=== PATIENT | female | born 1935 | race African-American/Black ===

== ENCOUNTER 2016-05-24 14:12 | Emergency (ER) | payer OTHER, MEDICAID ==
[~2016-05-24] VITALS: Ht 175.3 cm; Wt 80.7 kg
[~2016-05-24 14:12] MED LIST: AMBIEN5 MG ORAL; COZAAR50 MG ORAL; HYDROCHLOROTHIA25 MG ORAL; METFORMIN HCL500 M1 ORAL; NORVASC5 MG ORAL
[2016-05-24 14:28] VITALS: BP 176/68
[2016-05-24] MEDS ORDERED: Tylenol #3 tab (300mg/30mg) ORAL ONE (14:45)
[2016-05-24 15:30] VITALS: BP 162/52
[2016-05-24 16:04] VITALS: BP 148/49
[2016-05-24] MEDS ORDERED: PROMETHAZINE-D118 ML ORAL (16:17)
[2016-05-24] MEDS ORDERED: ACETAMINOPHEN-1 EAC1 ORAL (16:17)
[2016-05-24] MEDS ORDERED: LEVAQUIN750 MG ORAL (16:17)
[2016-05-24 16:34] VITALS: BP 148/49
--- NOTE | 2016-05-24 18:27 | Emergency Room Report ---
History of Present Illness General Chief Complaint: Multiple Trauma/Fall Source: Patient Present Illness HPI 80-year-old female presents to ED complaining of chest wall pain and headache status post fall. Patient states last night she fell out of her bed hitting the side table. Patient states she hit her head and her chest. No reported LOC. Patient is here complaining of headache and chest wall pain. Pain is dull. 8 out of 10. Nonradiating. No aggravating relieving factors. Denies shortness of breath. Daughter states that patient has been coughing times one month. Dry. No fevers or chills. No aggravating relieving factors. denies any other associated symptoms Allergies: Coded Allergies: PENICILLINS (Verified Allergy, Intermediate, Rash, 01/20/13) Patient History Past Medical History: DM, HTN Past Surgical History: none Pertinent Family History: none Social History: Denies: alcohol use, drug use, smoking Now: No Immunizations: UTD Reviewed Nursing Documentation: PMH: Agreed, PSxH: Agreed Nursing Documentation-PMH Past Medical History: No History, Except For Hx Cardiac Problems: No Hx Hypertension: Yes Hx Pacemaker: No Hx Asthma: No Hx COPD: No Hx Diabetes: Yes Hx Cancer: No Hx Gastrointestinal Problems: No Hx Dialysis: No Hx Neurological Problems: No Hx Cerebrovascular Accident: No Hx Seizures: No Review of Systems All Other Systems: negative except mentioned in HPI Physical Exam Vital Signs Date Time Temp Pulse Resp B/P Pulse Ox O2 Delivery O2 Flow Rate FiO2 05/24/16 14:24 99.0 83 18 178/64 96 Room Air Sp02 EP Interpretation: reviewed, normal General Appearance: no apparent distress, alert, GCS 15, non-toxic Head: normocephalic, atraumatic Eyes: bilateral eye PERRL, bilateral eye normal inspection ENT: hearing grossly normal, normal pharynx, no angioedema, normal voice Neck: full range of motion, no bony tend, supple/symm/no masses Respiratory: chest non-tender, normal breath sounds, speaking full sentences, other - reproducible anterior chest wall pain Cardiovascular #1: regular rate, rhythm, no edema Cardiovascular #2: 2+ carotid (R), 2+ carotid (L), 2+ radial (R), 2+ radial (L) , 2+ dorsalis pedis (R), 2+ dorsalis pedis (L) Gastrointestinal: normal bowel sounds, non tender, soft, non-distended, no guarding, no rebound Rectal: deferred Genitourinary: normal inspection, no CVA tenderness Musculoskeletal: back normal, gait/station normal, normal range of motion, non- tender Neurologic: alert, oriented x3, responsive, motor strength/tone normal, sensory intact, speech normal Psychiatric: judgement/insight normal, memory normal, mood/affect normal, no suicidal/homicidal ideation Reflexes: 3+ bicep (R), 3+ bicep (L), 3+ tricep (R), 3+ tricep (L), 3+ knee (R) , 3+ knee (L) Skin: normal color, no rash, warm/dry, well hydrated Lymphatic: no adenopathy Medical Decision Making Diagnostic Impression: Primary Impression: Contusion, chest wall Qualified Codes: S20.219A - Contusion of unspecified front wall of thorax, initial encounter Additional Impressions: Head injury Qualified Codes: S09.90XA - Unspecified injury of head, initial encounter Atypical pneumonia ER Course Hospital Course 80-year-old F presents to ED complaining of headache and chest wall pain s/p fall Differential diagnoses include: Fracture, dislocation, sprain, contusion, PTX Clinical course Patient placed on stretcher. After initial history and physical, I ordered pain medications and CT head, CT Chest CT Chest shows bibasilar atelectasis but no rib fx, no PTX; CT head unremarkable given persistent cough x 1 month with atelectasis on CT, we will treat with abx Diagnosis - head injury, chest wall contusion, atypical pnuemonia Stable and discharged to home with prescription for cough syrup, Levaquin, Tylenol #3. Followup with PMD. Return to ED if symptoms recur or worsen CT/MRI/US Diagnostic Results CT/MRI/US Diagnostic Results : Imaging Test Ordered: CT head, CT chest Impression CT head - no acute process CT chest - bibasilar atelctasis, no rib fx, no PTX Last Vital Signs Date Time Temp Pulse Resp B/P Pulse Ox O2 Delivery O2 Flow Rate FiO2 05/24/16 16:34 98.9 75 18 148/49 99 Room Air Status: improved Disposition: HOME, SELF-CARE Condition: Stable Scripts D-Methorphan Hb/Prometh Hcl* (PROMETHAZINE-DM SYRUP*) 118 Ml Syrup 5 ML ORAL Q4H Y for For Cough for 7 Days, ML 0 Refills Prov: TALIA SKY M.D. 05/24/16 Levofloxacin* (LEVAQUIN*) 750 Mg Tablet 750 MG ORAL DAILY, #5 TAB Prov: TALIA SKY M.D. 05/24/16 Acetaminophen With Codeine (T#3) (TYLENOL #3 TAB*) Y Tab 1 TAB ORAL Q8H Y for For Pain, #20 TAB Prov: TALIA SKY M.D. 05/24/16 Patient Instructions: Chest Contusion, [id number] TALIA SKY M.D. May 24, 2016 18:27
--- NOTE | 2016-05-25 10:00 | Diagnostic Imaging Report ---
Indication: Headache Technique: Continuous helical CT scanning of the head was performed utilizing automated exposure control without intravenous contrast material. Axial and coronal reconstructions were obtained. Comparison: None CT dose: Total DLP 1351 mGycm; CTDI vol 70.4 mGy Findings: There is no acute intracranial hemorrhage, mass effect or cortical edema. The ventricles, cisterns and sulci are within normal limits for age. Periventricular hypoattenuation is seen, a nonspecific finding, suggestive of age-related chronic ischemic microvascular changes. The posterior fossa and fourth ventricle are unremarkable. Sellar and suprasellar regions are grossly unremarkable. Visualized mastoid air cells and paranasal sinuses are unremarkable. No focal lesions of the bony calvarium or soft tissues of the scalp are seen. Impression: No evidence of acute intracranial hemorrhage, mass effect or cortical edema. MRI may be obtained for more sensitive evaluation as clinically indicated. Chronic age-related intracranial findings. The CT scanner at [facility] is accredited by the [employer] and the scans are performed using protocols designed to limit radiation exposure to as low as reasonably achievable to attain images of sufficient resolution adequate for diagnostic evaluation.
--- NOTE | 2016-05-25 11:46 | Diagnostic Imaging Report ---
Indication: Chest pain Technique: CT chest was performed utilizing automated exposure control without intravenous contrast material. Axial and coronal images were generated. CT dose: Total DLP 767 mGycm; CTDI vol 22.8 mGy Comparison: None Findings: Dependent and bilateral lower lobe linear opacities are seen. There is no consolidation. No pericardial or pleural effusions are identified. The heart size is within normal limits. Atherosclerotic changes are present with coronary artery calcifications. There is no bulky mediastinal adenopathy. Degenerative changes of the spine are noted. Small areas of bilateral humeral head sclerosis are suggestive of avascular necrosis. Impression: Dependent and bilateral lower lobe linear opacities suggestive of atelectasis. No consolidation. Atherosclerotic changes. 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 Clinical correlation recommended. The CT scanner at [facility] is accredited by the [employer] and the scans are performed using protocols designed to limit radiation exposure to as low as reasonably achievable to attain images of sufficient resolution adequate for diagnostic evaluation. The CT scanner at [facility] is accredited by the [employer] and the scans are performed using protocols designed to limit radiation exposure to as low as reasonably achievable to attain images of sufficient resolution adequate for diagnostic evaluation.
== END 2016-05-24 16:34 | disposition home or self-care (01) ==
LOC: EMR 14:54
DX: S20.219A Contusion of unspecified front wall of thorax, initial encounter (principal); S09.8XXA Other specified injuries of head, initial encounter; W06.XXXA Fall from bed, initial encounter; Y92.003 Bedroom of unspecified non-institutional (private) residence as the place of occurrence of the external cause; J18.9 Pneumonia, unspecified organism; R51 Headache; I10 Essential (primary) hypertension; E11.9 Type 2 diabetes mellitus without complications; Z88.0 Allergy status to penicillin
CPT/HCPCS: 70450; 71250; 99284

== ENCOUNTER 2018-11-11 18:37 | Emergency (ER) | payer MEDICAID, OTHER ==
[~2018-11-11] VITALS: Ht 162.6 cm; Wt 72.6 kg
[~2018-11-11 18:37] MED LIST changes: +ACETAMINOPHEN-1 EAC1 ORAL; +LEVAQUIN750 MG ORAL; +PROMETHAZINE-D118 ML ORAL
--- NOTE | 2018-11-11 18:43 | Emergency Room Report ---
History of Present Illness General Chief Complaint: Generalized Weakness Source: Patient, Medical Record (Kim NelsonMoncho ) Present Illness HPI This patient states that for the past days she has felt very lightheaded. She states she was concerned she was going to fall out. She denies recent illness. She denies fever or chills. She denies nausea or vomiting. She denies chest pain or shortness of breath. She denies abdominal pain. She denies dysuria or hematuria. She denies headache or neck pain. She denies vertigo. She has no other complaints. (Kim NelsonMoncho ) Allergies: Coded Allergies: PENICILLINS (Verified Allergy, Intermediate, Rash, 01/20/13) Patient History Past Medical History: DM, HTN Social History: Denies: smoking, alcohol use, drug use Reviewed Nursing Documentation: PMH: Agreed; PSxH: Agreed (Kim NelsonMoncho ) Nursing Documentation-PMH Past Medical History: No History, Except For Hx Cardiac Problems: No Hx Hypertension: Yes Hx Pacemaker: No Hx Asthma: No Hx COPD: No Hx Diabetes: Yes Hx Cancer: No Hx Gastrointestinal Problems: No Hx Dialysis: No Hx Neurological Problems: No Hx Cerebrovascular Accident: No Hx Seizures: No (Kim Nelson Moncho ) Review of Systems All Other Systems: negative except mentioned in HPI (Kim Nelson Moncho ) Physical Exam Sp02 EP Interpretation: reviewed, normal General Appearance: no apparent distress, alert, GCS 15, non-toxic Head: normocephalic, atraumatic Eyes: bilateral eye normal inspection, bilateral eye PERRL ENT: hearing grossly normal, normal pharynx, no angioedema, normal voice Neck: full range of motion, supple/symm/no masses Respiratory: chest non-tender, lungs clear, normal breath sounds, no respiratory distress, no retraction, no accessory muscle use, speaking full sentences Cardiovascular #1: regular rate, rhythm, no edema Gastrointestinal: normal bowel sounds, non tender, soft, non-distended, no guarding, no rebound Rectal: deferred Musculoskeletal: back normal, gait/station normal, normal range of motion, non- tender Neurologic: alert, oriented x3, responsive, motor strength/tone normal, sensory intact, speech normal Psychiatric: judgement/insight normal, memory normal, mood/affect normal, no suicidal/homicidal ideation (Kim Nelson DO) Medical Decision Making Diagnostic Impression: Primary Impression: Vertigo ER Course Overall, this patient's work-up is unremarkable. Laboratory work-up to include CBC, CMP, cardiac enzymes and cardiac work-up to include urinalysis were negative. I did road test this patient. She stated she still felt "dizzy." She is having difficulty describing her symptoms. With further more detailed discussion, I feel that this patient is having vertigo. She may be having central vertigo. She was given meclizine orally. She will be admitted for further work-up for her vertigo. I feel that this patient at her age and with her symptoms is not safe to go home as she could fall. She does not feel study. MRI brain is ordered and pending at the time of this dictation. This will likely be obtained in the morning as an inpatient when the solar installer technician is available. This patient is admitted for further evaluation and treatment of her vertigo. Laboratory Tests Test 11/11/18 18:58 11/11/18 19:19 White Blood Count 5.3 K/UL (4.8-10.8) Red Blood Count 4.08 M/UL (4.20-5.40) L Hemoglobin 12.9 G/DL (12.0-16.0) Hematocrit 38.2 % (37.0-47.0) Mean Corpuscular Volume 94 FL (80-99) Mean Corpuscular Hemoglobin 31.6 PG (27.0-31.0) H Mean Corpuscular Hemoglobin Concent 33.7 G/DL (32.0-36.0) Red Cell Distribution Width 11.2 % (11.6-14.8) L Platelet Count 195 K/UL (150-450) Mean Platelet Volume 7.4 FL (6.5-10.1) Neutrophils (%) (Auto) 58.2 % (45.0-75.0) Lymphocytes (%) (Auto) 33.3 % (20.0-45.0) Monocytes (%) (Auto) 5.5 % (1.0-10.0) Eosinophils (%) (Auto) 1.5 % (0.0-3.0) Basophils (%) (Auto) 1.4 % (0.0-2.0) Sodium Level 142 MMOL/L (136-145) Potassium Level 3.4 MMOL/L (3.5-5.1) L Chloride Level 107 MMOL/L (98-107) Carbon Dioxide Level 24 MMOL/L (21-32) Anion Gap 11 mmol/L (5-15) Blood Urea Nitrogen 18 mg/dL (7-18) Creatinine 1.1 MG/DL (0.55-1.30) Estimate Glomerular Filtration Rate mL/min (>60) Glucose Level 104 MG/DL (74-106) Lactic Acid Level 1.90 mmol/L (0.4-2.0) Calcium Level 9.8 MG/DL (8.5-10.1) Total Bilirubin 0.4 MG/DL (0.2-1.0) Aspartate Amino Transferase (AST) 18 U/L (15-37) Alanine Aminotransferase (ALT) 8 U/L (12-78) L Alkaline Phosphatase 85 U/L (46-116) Total Creatine Kinase 101 U/L (26-308) Creatine Kinase MB 0.7 NG/ML (0.0-3.6) Creatine Kinase MB Relative Index 0.6 Troponin I 0.000 ng/mL (0.000-0.056) Total Protein 8.5 G/DL (6.4-8.2) H Albumin 4.3 G/DL (3.4-5.0) Globulin 4.2 g/dL Albumin/Globulin Ratio 1.0 (1.0-2.7) Urine Color Pale yellow Urine Appearance Clear Urine pH 8 (4.5-8.0) Urine Specific Bitely 1.010 (1.005-1.035) Urine Protein Negative (NEGATIVE) Urine Glucose (UA) Negative (NEGATIVE) Urine Ketones Negative (NEGATIVE) Urine Blood Negative (NEGATIVE) Urine Nitrite Negative (NEGATIVE) Urine Bilirubin Negative (NEGATIVE) Urine Urobilinogen Normal MG/DL (0.0-1.0) Urine Leukocyte Esterase Negative (NEGATIVE) Microbiology Date/Time Source Procedure Growth Status 11/11/18 18:58 Nasal Nares - Final Complete 11/11/18 18:58 Nasal Nares - Final Complete (Kim Nelson DO) ER Course This patient was signed out to me. She presents with dizziness and vertigo symptom. CT scan was negative. MRI with pending. MRI report came back and was negative. I discussed the case with Dr. Farley. The patient for transfer to [facility]. (Satish Arthur MD) EKG Diagnostic Results Rate: normal Rhythm: NSR ST Segments: other - NSST (Kim Nelson Moncho CHAN) Rhythm Strip Diag. Results EP Interpretation: yes Rate: 60's Rhythm: NSR, no PVC's, no ectopy (Kim Nelson Moncho ) Chest X-Ray Diagnostic Results Chest X-Ray Diagnostic Results : Chest X-Ray Ordered: Yes # of Views/Limited/Complete: 1 View Indication: Other EP Interpretation: Yes Interpretation: no consolidation, no effusion, no pneumothorax, no acute cardiopulmonary disease Impression: No acute disease Electronically Signed by: Kim Nelson DO. (LeslieKim Moncho ) CT/MRI/US Diagnostic Results CT/MRI/US Diagnostic Results : Imaging Test Ordered: MRI brain Impression Neg Per radiologist (Satish Arthur MD) Status: unchanged (Satish Arthur MD) Disposition: XFER SHT-TRM HOSP Condition: Stable Kim Nelson DO Nov 11, 2018 18:43 Satish Arthur MD Nov 11, 2018 22:18
[2018-11-11 18:46] VITALS: BP 174/57
--- NOTE | 2018-11-11 18:46 | NUR ---
ED Nurse Note: PT BROUGHT IN BY EMS FROM HOME DUE TO WEAKNESS AND DIZZINESS STARTED A COUPLE OF DAYS AGO. HX OF DM AND STATES SHE HAS BEEN TAKING HER METFORMIN. BS IN THE FIELD 103. AAO X4, AMBULATORY WITH UNLABORED BREATHING. DENIES DIZZINESS AT THIS TIE BUT FEELS WEAK.
--- NOTE | 2018-11-11 19:03 | NUR ---
ED Nurse Note: COLLECTED BLOOD THEN SENT.
--- NOTE | 2018-11-11 19:10 | NUR ---
ED Nurse Note: Patient is resting with daughters at bedside. patient able to ambulate to the restroom with minimal assist. Patient is hypertensious, other vitals within normal range.
[2018-11-11] MEDS: Sodium Chloride 2,200 ML IVLG ONE (19:13)
[2018-11-11 19:16] LABS: BASOPHILS % (AUTO) 1.4 % (0.0-2.0); EOSINOPHILS % (AUTO) 1.5 % (0.0-3.0); HEMATOCRIT 38.2 % (37.0-47.0); HEMOGLOBIN 12.9 G/DL (12.0-16.0); LYMPHOCYTES % (AUTO) 33.3 % (20.0-45.0); MEAN CORPUSCULAR VOLUME 94 FL (80-99); MONOCYTES % (AUTO) 5.5 % (1.0-10.0); NEUTROPHILS % (AUTO) 58.2 % (45.0-75.0); PLATELET COUNT 195 K/UL (150-450); RED BLOOD COUNT 4.08 M/UL (4.20-5.40); RED CELL DISTRIBUTION WIDTH 11.2 % (11.6-14.8); WHITE BLOOD COUNT 5.3 K/UL (4.8-10.8)
--- NOTE | 2018-11-11 19:18 | NUR ---
HAND-OFF: Report given to LORENE BRAY.
[2018-11-11 19:35] LABS: ANION GAP 11 mmol/L (5-15); BLOOD UREA NITROGEN 18 mg/dL (7-18); CALCIUM 9.8 MG/DL (8.5-10.1); CARBON DIOXIDE 24 MMOL/L (21-32); CHLORIDE 107 MMOL/L (98-107); CREATININE 1.1 MG/DL (0.55-1.30); POTASSIUM 3.4 MMOL/L (3.5-5.1); SODIUM 142 MMOL/L (136-145)
[2018-11-11 19:45] LABS: APPEARANCE,URINE CLEAR; BILIRUBIN, URINE NEGATIVE (NEGATIVE); COLOR,URINE PALE YELLOW; GLUCOSE, URINE (UA) NEGATIVE (NEGATIVE); KETONES,URINE NEGATIVE (NEGATIVE); LEUKOCYTE ESTERASE ,URINE NEGATIVE (NEGATIVE); NITRITE,URINE NEGATIVE (NEGATIVE); PH,URINE 8 (4.5-8.0); PROTEIN,URINE NEGATIVE (NEGATIVE); UROBILINOGEN,URINE NORMAL MG/DL (0.0-1.0)
[2018-11-11 19:49] LABS: ALANINE AMINOTRANSFERASE 8 U/L (12-78); ALBUMIN 4.3 G/DL (3.4-5.0); ALKALINE PHOSPHATASE 85 U/L (46-116); ASPARTATE AMINO TRANSFERASE 18 U/L (15-37); BILIRUBIN,TOTAL 0.4 MG/DL (0.2-1.0); CKMB 0.7 NG/ML (0.0-3.6); CREATINE KINASE 101 U/L (26-308)
[2018-11-11 19:54] VITALS: BP 168/52
[2018-11-11] MEDS: Meclizine 25mg tab ORAL ONE (20:41)
--- NOTE | 2018-11-11 20:46 | NUR ---
ED Nurse Note: PAtiebt accompanied by DAVONTE to MRI.
[2018-11-11 22:34] VITALS: BP 155/62
--- NOTE | 2018-11-11 22:39 | NUR ---
ED Nurse Note: Patient is awake and alert x4, conversing with daughter and grand daughter at bedside. Patient vital signs stable and updated.
[2018-11-11 22:43] VITALS: BP 141/74
--- NOTE | 2018-11-11 23:27 | NUR ---
ED Nurse Note: Called and tried to give report for bed 214A, which was already occupied. Nurse has not been assigned for this patient. Rendered an extensive report to Chandrika BRAY, who is the break nurse. ETA for greens picker 0000.
--- NOTE | 2018-11-12 00:58 | NUR ---
ED Nurse Note: Patient states she feels much better, able to ambulate to the restroom with minimal assist and no complaints of dizziness.
--- NOTE | 2018-11-12 01:47 | NUR ---
ED Nurse Note: Royalty here for cone picker, report rendered. Patient awake, alert and oriented x4. Patient departed with all belongings accompanied by her daughter and tugboat captain. IV on saline lock at right wrist.
[2018-11-12 01:51] VITALS: BP 141/74
--- NOTE | 2018-11-12 10:46 | Diagnostic Imaging Report ---
Indication: Dizziness Technique: The head was imaged in a 1.5 Araseli magnet. Sequences obtained include sagittal and axial T1 FLAIR, axial T2 fast spin echo with fat saturation, axial T2 FLAIR, diffusion and ADC map. Comparison: None Findings: There is mild prominence of the sulci, ventricles, and basal cisterns consistent with atrophy, but age-appropriate. Mild, patchy nonspecific T2 hyperintensity noted within white matter. This may be due to chronic small vessel disease. There is no restricted diffusion. Moncada-white differentiation is normal. There is no mass effect, midline shift, edema, or hemorrhage. There are no abnormal extra-axial or intra-axial fluid collections. The corpus callosum and sella are unremarkable. The brainstem and cerebellum are unremarkable. Bone marrow signal within the visualized osseous structures appears age appropriate and unremarkable otherwise. Impression: No acute CVA, hemorrhage, mass effect or edema. Mild atrophy and evidence of chronic small vessel disease involving white matter tracts.
--- NOTE | 2018-11-12 12:17 | Diagnostic Imaging Report ---
Indication: Dyspnea Comparison: 01/20/2013 A single view chest radiograph was obtained. Findings: No definite infiltrate or pulmonary vascular congestion identified. The heart is enlarged. The aorta is mildly enlarged consistent with atherosclerotic vascular disease. The bones are osteopenic. Impression: No acute disease
--- NOTE | 2018-11-12 15:55 | Cardiology Report ---
APPROVED REPORT EKG Measurement Heart [id number] Normal sinus rhythm Possible Left atrial enlargement Nonspecific T wave abnormality Abnormal ECG
== END 2018-11-12 01:52 | disposition short-term general hospital (02) ==
LOC: EDBD 18:37 → EMR 18:47
DX: R42 Dizziness and giddiness (principal); R53.1 Weakness; E11.9 Type 2 diabetes mellitus without complications; I10 Essential (primary) hypertension; Z88.0 Allergy status to penicillin
CPT/HCPCS: 36415; 70551; 71045; 80053; 81003; 82550; 82553; 83605; 84484; 85025; 86710; 87040; 93005; 96360; 99284